=== PATIENT | male | born 1975 | race Caucasian/White ===

== ENCOUNTER 2018-05-21 18:02 | Emergency (ER) | payer MEDICARE, MEDICAID, SELFPAY ==
[2018-05-21 18:07] VITALS: BP 131/80; PULSE 86; RESP 18; TEMP 37.1; O2SAT 99
--- NOTE | 2018-05-21 18:59 | W.ED.GENAD ---
Discharge Plan Disposition Patient Disposition: HOME Condition: Fair Discharge Details Chief Complaint: Cellulitis Clinical Impression: Cellulitis in diabetic foot Primary Care Provider: None,None ED Provider: Pinky Nelson Home Meds and New Rx's Prescriptions: New clindamycin HCl 150 mg capsule 450 mg PO TID Qty: 63 RF: 0 Continue metformin 500 mg Tablet 1,000 mg PO BID RF: 0 methadone 10 mg/5 mL Solution 30 mg PO DAILY RF: 0 glyburide 5 mg Tablet PO DAILY RF: 0 lisinopril 10 mg Tablet PO DAILY RF: 0 triamcinolone acetonide 0.05 % Ointment 1 appful Topical PRN PRNRF: 0 lisdexamfetamine [Vyvanse] 50 mg Capsule 50 mg PO DAILY RF: 0 Discharge Instructions Instructions: Cellulitis (ED) Additional Instructions: Encourage hydration. Take antibiotics as prescribed, even if symptoms improve please take entire course. Please follow up with Dr. Escobar this week for reevaluation . If you are unable to follow up with him, please call primary care for follow up. Elevate foot. Keep wound clean, dry, covered. Seek care urgently once again if redness spreads, you have fevers/chills or other new/worsening symptoms. Medical Decision Making Patient is a 43-year-old poorly controlled diabetic, accompanied by his , chief complaint of erythema and warmth to the second toe right foot. He reports that he has had a callus to the affected digit for the past year. This is been evaluated by his primary care physician. Patient has been seen by agricultural chemist historically but is not had any follow-up appointments recently. States that he has chronic sensory deficits associated with diabetic neuropathy. No recent trauma that he is aware of. States that he noted the erythema starting yesterday and this has progressively spread. States he was feeling ill today. States that he vomited x1 this afternoon while at work. Reports that this is secondary to his p.o. intake. Reports he has had nothing for p.o. intake today aside from coughing. States that when he does this he does not frequently have GI upset. Patient seems very aware that this type of poor p.o. intake and dietary habits may be exacerbating his poor diabetic control. Reports that he recently had addition of another diabetic medication. On exam, patient has erythema to the second right digit. It is warm to the touch. No drainage is noted. No area of fluctuance to suggest a drainable abscess. Capillary refill is intact. Sensation is diminished, patient reports is chronic. 2+ distal pulses. Patient does appear to have chronic foot deformities, this is noted bilaterally. Calves are soft and nontender. Lungs clear, abdomen is soft and nontender. Patient and I discussed his chronic episodes of nausea ad vomiting. He reports this is chronic and intermittent. Smokes marijuana daily. Advised that he try to cut back. We discussed evaluation for this, at this time patient prefers treatment for cellulitis and to hold off on further evaluation for his abdomen. Currently asymptomatic. Advised on new/wrosening symptomsn ane when to seek care urgenttly once again. We discussed dietary changes. He seems very aware of what he should be doing but states that he is very inconsistent with this. Patient placed on Clindamycin. Advised f/u with podiatry this week for reevaluation. All of his questions and concerns were addressed, he is in agreement with this plan. [facility] General Mode of arrival: ambulatory. Date/Time Provider Initiated Documentation: 05/21/18 18:20. Limitations to Documentation: no limitations. Information obtained by: patient. History of Present Illness 43 year old M presents to the emergency department with the chief complaint of right foot cellulitis, described as moderate, with intensity rated at 6. Quality is described as aching, and is localized to the left and lower extremity. Patient reports no radiation. Patient started experiencing this day(s) (1) and it has been constant. No relieving factors improve symptom(s), No exacerbating factors reported . Patient notes loss of appetite, nausea/vomiting and rash; denies chest pain, cough, fever/chills, headaches, malaise, shortness of breath and weakness. Patient did receive the following treatments prior to arrival, none Related Data Home Medications Medication Instructions Recorded Confirmed clindamycin HCl 450 mg PO TID #63 cap 05/21/18 glyburide mg PO DAILY 05/21/18 lisdexamfetamine [Vyvanse] 50 mg PO DAILY 05/21/18 05/21/18 lisinopril mg PO DAILY 05/21/18 metformin 1,000 mg PO BID 05/21/18 05/21/18 methadone 30 mg PO DAILY 05/21/18 05/21/18 triamcinolone acetonide 1 appful TOPICAL PRN PRN 05/21/18 05/21/18 Previous Rx's Medication Instructions Recorded clindamycin HCl 450 mg PO TID #63 cap 05/21/18 Allergies Allergy/AdvReac Type Severity Reaction Status Date / Time amitriptyline AdvReac Psychosis Unverified 05/21/18 18:11 duloxetine [From Cymbalta] AdvReac Psychosis Unverified 05/21/18 18:11 gabapentin AdvReac Psychosis Unverified 05/21/18 18:11 ketorolac [From Toradol] AdvReac Psychosis Unverified 05/21/18 18:11 pregabalin [From Lyrica] AdvReac Psychosis Unverified 05/21/18 18:11 General Stated Complaint: Cellulitis APRIL: 3 Review of Systems Constitutional Reports as per HPI, Denies chills, Denies fatigue, Denies fever(s) and Denies headache(s) ENT Denies headache(s) Cardiovascular Reports as per HPI, Denies chest pain and Denies dyspnea Respiratory Denies cough and Denies dyspnea Gastrointestinal Reports as per HPI, Denies abdominal pain, Denies change in bowel habits and Reports vomiting (x1 today, associates with dietary intake) Genitourinary Denies system reviewed and no additional complaints, except as docu (patient denies any change in urinary habits) Musculoskeletal Reports as per HPI, Denies abnormal gait and Denies back pain Integumentary/Breasts Reports as per HPI and Reports other (erythema to 2nd right toe) Neurologic Denies abnormal gait and Denies headache(s) Endocrine Denies fatigue [facility] Social History Smoking/Tobacco Use Status: Never Social History Smoking/Tobacco Use Status: Never Exam Const General: cooperative, healthy appearing, comfortable, no acute distress and well developed Nutritional Appearance: average body habitus and well nourished Orientation: alert and awake HENMT Head: normal to inspection Mouth: moist mucous membranes Resp Effort & Inspection: normal respiratory effort, able to speak in complete sentences and no respiratory distress Auscultation: clear to auscultation bilaterally, no rales, no rhonchi and no wheezes Cardio Rate: regular rate Rhythm: regular rhythm Heart Sounds: S1 normal and S2 normal GI Inspection: normal to inspection, no abdominal wall ecchymosis, no edema and non-distended Palpation: soft, no hepatosplenomegaly, no guarding, not rigid and nontender Auscultation: normal bowel sounds Skin General skin exam: erythema (circumfrencial erythema around the 2nd digit right foot, this is warm to palpation. Brisk capillary refill. He has a white, swollen arear to the medial aspect of the toe. Appears chronic. Small open area at the base. Consistent with calus. No drainage. Sensory deficit.) Neuro General: alert and awake Cognition: normal cognition Speech: speech normal Gait: normal gait Sensory Exam: sensory deficits noted (sensation is limited in the feet) Extrem Right lower extremity: normal capillary refill; abnormal to inspection (skin changes as above. Limited ROM of the ankle, this is equal to the contralateral side, does not appear acute. Flat foot with medial deformity, this does not appear acute), no edema and joint enlargement noted Psych Appearance: grossly normal and well kempt Mental Status: mental status grossly normal Speech and Movement: speech and movement normal Course Vital Signs Temperature 37.1 C 05/21/18 18:07 Pulse 86 05/21/18 18:07 Respiratory Rate 18 05/21/18 18:07 Blood Pressure 131/80 05/21/18 18:07 Pulse Oximetry 99 05/21/18 18:07 Temperature 37.1 C 05/21/18 18:07 Temperature Source Temporal Artery Scan 05/21/18 18:07 Pulse 86 05/21/18 18:07 Respiratory Rate 18 05/21/18 18:07 Respiratory Effort Short of Breath 05/21/18 18:07 Blood Pressure 131/80 05/21/18 18:07 Blood Pressure Position Sitting 05/21/18 18:07 Pulse Oximetry 99 05/21/18 18:07 Oxygen Delivery Method Room Air 05/21/18 18:07 Oxygen Flow Rate 0 05/21/18 18:07 Pain Level 6 05/21/18 18:07
--- NOTE | 2018-05-21 19:14 | ED.GENADUL_ITS ---
Discharge Plan Disposition Patient Disposition: HOME Condition: Fair Discharge Details Chief Complaint: Cellulitis Clinical Impression: Cellulitis in diabetic foot Primary Care Provider: None,None ED Provider: Pinky Nelson Home Meds and New Rx's Prescriptions: New clindamycin HCl 150 mg capsule 450 mg PO TID Qty: 63 RF: 0 Continue metformin 500 mg Tablet 1,000 mg PO BID RF: 0 methadone 10 mg/5 mL Solution 30 mg PO DAILY RF: 0 glyburide 5 mg Tablet PO DAILY RF: 0 lisinopril 10 mg Tablet PO DAILY RF: 0 triamcinolone acetonide 0.05 % Ointment 1 appful Topical PRN PRNRF: 0 lisdexamfetamine [Vyvanse] 50 mg Capsule 50 mg PO DAILY RF: 0 Discharge Instructions Instructions: Cellulitis (ED) Additional Instructions: Encourage hydration. Take antibiotics as prescribed, even if symptoms improve please take entire course. Please follow up with Dr. Escobar this week for reevaluation . If you are unable to follow up with him, please call primary care for follow up. Elevate foot. Keep wound clean, dry, covered. Seek care urgently once again if redness spreads, you have fevers/ chills or other new/worsening symptoms. Medical Decision Making Patient is a 43-year-old poorly controlled diabetic, accompanied by his , chief complaint of erythema and warmth to the second toe right foot. He reports that he has had a callus to the affected digit for the past year. This is been evaluated by his primary care physician. Patient has been seen by emergency room technician historically but is not had any follow-up appointments recently. States that he has chronic sensory deficits associated with diabetic neuropathy. No recent trauma that he is aware of. States that he noted the erythema starting yesterday and this has progressively spread. States he was feeling ill today. States that he vomited x1 this afternoon while at work. Reports that this is secondary to his p.o. intake. Reports he has had nothing for p.o. intake today aside from coughing. States that when he does this he does not frequently have GI upset. Patient seems very aware that this type of poor p.o. intake and dietary habits may be exacerbating his poor diabetic control. Reports that he recently had addition of another diabetic medication. On exam, patient has erythema to the second right digit. It is warm to the touch. No drainage is noted. No area of fluctuance to suggest a drainable abscess. Capillary refill is intact. Sensation is diminished, patient reports is chronic. 2+ distal pulses. Patient does appear to have chronic foot deformities, this is noted bilaterally. Calves are soft and nontender. Lungs clear, abdomen is soft and nontender. Patient and I discussed his chronic episodes of nausea ad vomiting. He reports this is chronic and intermittent. Smokes marijuana daily. Advised that he try to cut back. We discussed evaluation for this, at this time patient prefers treatment for cellulitis and to hold off on further evaluation for his abdomen. Currently asymptomatic. Advised on new/wrosening symptomsn ane when to seek care urgenttly once again. We discussed dietary changes. He seems very aware of what he should be doing but states that he is very inconsistent with this. Patient placed on Clindamycin. Advised f/u with podiatry this week for reevaluation. All of his questions and concerns were addressed, he is in agreement with this plan. [facility] General Mode of arrival: ambulatory . Date/Time Provider Initiated Documentation: 05/21/18 18:20 . Limitations to Documentation: no limitations . Information obtained by: patient . History of Present Illness 43 year old M presents to the emergency department with the chief complaint of right foot cellulitis, described as moderate, with intensity rated at 6. Quality is described as aching, and is localized to the left and lower extremity. Patient reports no radiation. Patient started experiencing this day(s) (1) and it has been constant. No relieving factors improve symptom(s) , No exacerbating factors reported . Patient notes loss of appetite, nausea/ vomiting and rash; denies chest pain, cough, fever/chills, headaches, malaise, shortness of breath and weakness. Patient did receive the following treatments prior to arrival, none Related Data Home Medications Medication Instructions Recorded Confirmed clindamycin HCl 450 mg PO TID #63 cap 05/21/18 glyburide mg PO DAILY 05/21/18 lisdexamfetamine [Vyvanse] 50 mg PO DAILY 05/21/18 05/21/18 lisinopril mg PO DAILY 05/21/18 metformin 1,000 mg PO BID 05/21/18 05/21/18 methadone 30 mg PO DAILY 05/21/18 05/21/18 triamcinolone acetonide 1 appful TOPICAL PRN PRN 05/21/18 05/21/18 Previous Rx's Medication Instructions Recorded clindamycin HCl 450 mg PO TID #63 cap 05/21/18 Allergies Allergy/AdvReac Type Severity Reaction Status Date / Time amitriptyline AdvReac Psychosis Unverified 05/21/18 18:11 duloxetine [From Cymbalta] AdvReac Psychosis Unverified 05/21/18 18:11 gabapentin AdvReac Psychosis Unverified 05/21/18 18:11 ketorolac [From Toradol] AdvReac Psychosis Unverified 05/21/18 18:11 pregabalin [From Lyrica] AdvReac Psychosis Unverified 05/21/18 18:11 General Stated Complaint: Cellulitis APRIL: 3 Review of Systems Constitutional Reports as per HPI, Denies chills, Denies fatigue, Denies fever(s) and Denies headache(s) ENT Denies headache(s) Cardiovascular Reports as per HPI, Denies chest pain and Denies dyspnea Respiratory Denies cough and Denies dyspnea Gastrointestinal Reports as per HPI, Denies abdominal pain, Denies change in bowel habits and Reports vomiting (x1 today, associates with dietary intake) Genitourinary Denies system reviewed and no additional complaints, except as docu (patient denies any change in urinary habits) Musculoskeletal Reports as per HPI, Denies abnormal gait and Denies back pain Integumentary/Breasts Reports as per HPI and Reports other (erythema to 2nd right toe) Neurologic Denies abnormal gait and Denies headache(s) Endocrine Denies fatigue [facility] Social History Smoking/Tobacco Use Status: Never Social History Smoking/Tobacco Use Status: Never Exam Const General: cooperative, healthy appearing, comfortable, no acute distress and well developed Nutritional Appearance: average body habitus and well nourished Orientation: alert and awake HENMT Head: normal to inspection Mouth: moist mucous membranes Resp Effort & Inspection: normal respiratory effort, able to speak in complete sentences and no respiratory distress Auscultation: clear to auscultation bilaterally, no rales, no rhonchi and no wheezes Cardio Rate: regular rate Rhythm: regular rhythm Heart Sounds: S1 normal and S2 normal GI Inspection: normal to inspection, no abdominal wall ecchymosis, no edema and non -distended Palpation: soft, no hepatosplenomegaly, no guarding, not rigid and nontender Auscultation: normal bowel sounds Skin General skin exam: erythema (circumfrencial erythema around the 2nd digit right foot, this is warm to palpation. Brisk capillary refill. He has a white, swollen arear to the medial aspect of the toe. Appears chronic. Small open area at the base. Consistent with calus. No drainage. Sensory deficit.) Neuro General: alert and awake Cognition: normal cognition Speech: speech normal Gait: normal gait Sensory Exam: sensory deficits noted (sensation is limited in the feet) Extrem Right lower extremity: normal capillary refill; abnormal to inspection (skin changes as above. Limited ROM of the ankle, this is equal to the contralateral side, does not appear acute. Flat foot with medial deformity, this does not appear acute), no edema and joint enlargement noted Psych Appearance: grossly normal and well kempt Mental Status: mental status grossly normal Speech and Movement: speech and movement normal Course Vital Signs Temperature 37.1 C 05/21/18 18:07 Pulse 86 05/21/18 18:07 Respiratory Rate 18 05/21/18 18:07 Blood Pressure 131/80 05/21/18 18:07 Pulse Oximetry 99 05/21/18 18:07 Temperature 37.1 C 05/21/18 18:07 Temperature Source Temporal Artery Scan 05/21/18 18:07 Pulse 86 05/21/18 18:07 Respiratory Rate 18 05/21/18 18:07 Respiratory Effort Short of Breath 05/21/18 18:07 Blood Pressure 131/80 05/21/18 18:07 Blood Pressure Position Sitting 05/21/18 18:07 Pulse Oximetry 99 05/21/18 18:07 Oxygen Delivery Method Room Air 05/21/18 18:07 Oxygen Flow Rate 0 05/21/18 18:07 Pain Level 6 05/21/18 18:07
== END 2018-05-21 19:16 | disposition home or self-care (01) ==
LOC: ER 19:33
PROVIDERS: Emergency Provider Physician Assistant
DX: E11.628 Type 2 diabetes mellitus with other skin complications (principal); L03.115 Cellulitis of right lower limb; R11.2 Nausea with vomiting, unspecified; E11.40 Type 2 diabetes mellitus with diabetic neuropathy, unspecified
CPT/HCPCS: 99283

== ENCOUNTER 2019-01-16 21:33 | Emergency (ER) | payer MEDICARE, MEDICAID, SELFPAY ==
[2019-01-16 21:37] VITALS: BP 155/86; PULSE 124; RESP 18; TEMP 37.2; O2SAT 97
[2019-01-16 21:49] VITALS: RESP 16
--- NOTE | 2019-01-16 21:56 | W.ED.GENAD ---
Discharge Plan Disposition Patient Disposition: HOME Condition: Good Discharge Details Chief Complaint: GenMedical Clinical Impression: Constipation Primary Care Provider: None,None ED Provider: Ken Isabel Meds and New Rx's Prescriptions: Continued metformin 500 mg Tablet 1,000 mg PO BID RF: 0 methadone 10 mg/5 mL Solution 30 mg PO DAILY RF: 0 glyburide 5 mg Tablet 5 mg PO DAILY RF: 0 lisinopril 10 mg Tablet 10 mg PO DAILY RF: 0 triamcinolone acetonide 0.05 % Ointment 1 appful Topical PRN PRNRF: 0 Vyvanse 50 mg Capsule 50 mg PO DAILY RF: 0 Discharge Instructions Instructions: Constipation (ED) Additional Instructions: Laboratory studies look fine. Urinalysis is normal. CT scan suggests significant constipation/obstipation. Likely related to methadone use. Please increase your fluid and fiber intake. Try using magnesium citrate as we discussed. Follow-up with primary care next week if not better. Return to ED if you develop fever, persistent vomiting, worsening abdominal pain, other concerns or problems. Referrals: Primary Care Provider [Outside] Medical Decision Making Patient has myriad of chronic problems. However, complaining of new/worsening abdominal pain and left back pain with associated vomiting. Suspect his heart rate and blood pressure are more due to anxiety and anything else. His exam is otherwise unremarkable including a benign abdomen. He is reporting 1 week worth of worsening pain. Because of the tachycardia, I will give fluids check laboratory studies and obtain CT scan. However, again I think his abnormal vital signs are mostly related to anxiety. Will hold off giving anything for pain as he actually seems quite comfortable. Patient's heart rate and blood pressure have come down to normal. Laboratory studies are unremarkable. Sugar is a little high at 219 but the rest of the labs look fine. Urinalysis is negative for infection or blood. CT scan with nothing acute other than evidence of obstipation/constipation which may be related to patient's methadone use. Recommend increase fluids and fiber. He has tried [id number] medications but has not tried mag citrate in the past. We will have him use mag citrate quarter bottle a day until results. Follow-up with primary care next week if not better. Return to ED for fever, persistent vomiting, worsening abdominal pain, other concerns or problems. Lab Data Lab results reviewed: Yes I reviewed the patient's lab results. HPI General Mode of arrival: ambulatory. Date/Time Provider Initiated Documentation: 01/16/19 21:40. Limitations to Documentation: no limitations. Information obtained by: patient and RN notes reviewed. HPI Narrative: Patient presents with chief complaint of worsening abdominal pain for the last 6 days with associated worsening left back pain for the last 4 days. Reports prior to that he had flulike symptoms consisting of fevers, malaise, body aches, lethargy for about 10 days. Those symptoms have subsequently resolved. He developed the abdominal pain towards the end of this episode. He reports that it is getting worse and is generalized. He has nausea and has had an episode of vomiting in the morning for the last 3 days. He reports decreased oral intake and weight loss. He is having some palpitations. He denies fevers or chills. He denies chest pain or shortness of breath. He has no hematuria or dysuria. He has chronic back and leg pain as well as neuropathy but feels the abdominal pain and left back pain is new and different. Related Data Home Medications Medication Instructions Recorded Confirmed Vyvanse 50 mg PO DAILY 05/21/18 01/16/19 glyburide 5 mg PO DAILY 05/21/18 01/16/19 lisinopril 10 mg PO DAILY 05/21/18 01/16/19 metformin 1,000 mg PO BID 05/21/18 01/16/19 methadone 30 mg PO DAILY 05/21/18 01/16/19 triamcinolone acetonide 1 appful TOPICAL PRN PRN 05/21/18 01/16/19 Allergies Allergy/AdvReac Type Severity Reaction Status Date / Time amitriptyline AdvReac Psychosis Unverified 01/16/19 21:44 duloxetine [From Cymbalta] AdvReac Psychosis Unverified 01/16/19 21:44 gabapentin AdvReac Psychosis Unverified 01/16/19 21:44 ketorolac [From Toradol] AdvReac Psychosis Unverified 01/16/19 21:44 pregabalin [From Lyrica] AdvReac Psychosis Unverified 01/16/19 21:44 General Stated Complaint: GenMedical APRIL: 3 Review of Systems Review of Systems 03/25 Review of Systems completed and is negative except as stated above in HPI (Systems reviewed: Const, Eyes, ENT, Resp, CV, GI, , MSK, Skin, Neuro) [facility] Medical History ADHD (Acute) Anxiety (Chronic) Depression (Chronic) Diabetes mellitus (Chronic) HTN (hypertension) (Chronic) Social History (Updated 01/16/19 @ 22:11 by Ken Isabel MD) Smoking/Tobacco Use Status: Former Tobacco Use Alcohol Intake: never Drug use: Daily Substance use type: marijuana Do you feel safe in your relationship?: Yes Exam Narrative Exam Narrative: Vitals: Afebrile. Tachycardic and hypertensive but seems quite anxious and wound up. Normal respirations and O2 saturations. Const: WDWN male in NAD. HEENT: NC/AT. Normal facial exam. Eyes: Normal conjunctiva and sclera. Neck: Supple. Trachea midline. Lungs: Normal respiratory effort. Lungs are clear. Cor: RRR without murmur/gallop. Tachycardic. Good radial pulses. GI: Soft. NT/ND. No guarding or rebound. No HSM. Back: No CVAT. Neuro: A+O x 3. CN grossly in tact. Good strength and no focal deficit. Ext: No C/C/E. Skin: Warm and dry without rash. Psych: Anxious and pressured at times. Course Vital Signs Temperature 98.9 F 01/16/19 21:37 Pulse 124 H 01/16/19 21:37 Respiratory Rate 18 01/16/19 21:37 Blood Pressure 155/86 H 01/16/19 21:37 Pulse Oximetry 97 01/16/19 21:37 Temperature 98.9 F 01/16/19 21:37 Temperature Source Temporal Artery Scan 01/16/19 21:37 Pulse 124 H 01/16/19 21:37 Respiratory Rate 16 01/16/19 21:49 Respiratory Effort 01/16/19 21:49 Respiratory Depth Normal 01/16/19 21:49 Respiratory Pattern Normal 01/16/19 21:49 Blood Pressure 155/86 H 01/16/19 21:37 Blood Pressure Position Sitting 01/16/19 21:37 Pulse Oximetry 97 01/16/19 21:37 Oxygen Delivery Method Room Air 01/16/19 21:37 Oxygen Flow Rate 0 01/16/19 21:37
[2019-01-16] MEDS: Normal Saline 1,000 ML 1000 ML IV (22:27)
[2019-01-16 22:28] LABS: Abs Immature Grans 0.03 k/cumm (0.0-0.09); Absolute Basophil Count 0.04 k/cumm (0.0-0.2); Absolute Eosinophil Count 0.37 k/cumm (0.0-0.7); Absolute Monocyte Count 0.56 k/cumm (0.11-0.7); Absolute Neutrophil Count 4.34 k/cumm (1.2-6.7); Basophils % 0.5; Eosinophils % 4.3; HCT 43.3 % (40.0-50.0); HGB 14.8 g/dL (13.5-17.5); Immature Grans % 0.4; Lymphocytes % 37.5; Mean Corp. HGB Concentration 34.2 g/dL (32.0-36.0); Mean Corpuscular Volume 84.9 fL (80-95); Mean Platelet Volume 9.7 fL (8.0-11.0); Monocytes % 6.6; Neutrophils % 50.7; Platelet Count 226 x1000/uL (130-400); RBC Distribution Width 13.2 % (11.8-14.1); White Blood Cell Count 8.54 k/cumm (4.4-10.8)
[2019-01-16 23:00] LABS: ALT 34 U/L (12-78); AST 20 U/L (15-37); Albumin 4.1 g/dL (3.4-5.0); Alkaline Phosphatase 68 U/L (46-116); BUN 18 mg/dL (7-18); Bilirubin, Total 0.2 mg/dL (0.2-1.0); CREATININE 0.93 mg/dL (0.70-1.30); Chloride 102 mmol/L (98-107); Glucose 219 mg/dL (70-100); Lipase 107 U/L (73-393); Magnesium 1.9 mg/dL (1.8-2.4); Potassium 3.9 mmol/L (3.5-5.1); Sodium 139 mmol/L (136-145); Total Protein 7.6 g/dL (6.4-8.2)
[2019-01-16] MEDS: Omnipaque 350 MG/ML 100 ML BTL IJ (23:26)
[2019-01-16] MEDS: Omnipaque 350 MG/ML 50 ML BTL IJ (23:27)
--- NOTE | 2019-01-16 23:29 | DI.CT_ITS ---
SYMPTOM/DIAGNOSIS: WORSENING LEFT SIDED ABDOMINAL PAIN ABDOMINAL AND PELVIC CT 01/16/19 CT examination of the abdomen and pelvis was performed with a bolus infusion of 100 cc Omnipaque 350. Images obtained through the lung bases are unremarkable. Liver, spleen, pancreas, gallbladder and bile ducts are unremarkable. Abdominal aorta is of normal diameter and no major vascular abnormality is seen. Adrenals appear normal bilaterally. Small low attenuation well circumscribed left renal lesions are consistent with cysts. No other urinary tract abnormality is seen. Small bilateral fat containing inguinal hernias noted along with tiny fat containing umbilical hernia. No significant abdominal or pelvic adenopathy. Moderate quantity of stool in the colon. Normal appearance of the appendix. Question mild wall thickening of portions of the colon may be due to underdistention but colitis is not entirely excluded. CONCLUSION: No convincing evidence of acute intra-abdominal process. Question colonic wall thickening, colitis not excluded. Please correlate clinically.
[2019-01-16 23:40] VITALS: BP 129/80; PULSE 82; RESP 16; TEMP 37; O2SAT 96
[2019-01-16 23:45] LABS: Bilirubin Negative (Negative); Blood Negative (Negative); Clarity Clear (Clear); Glucose Negative (Negative); Ketones Negative (Negative); Leukocyte Esterase Negative (Negative); Nitrite Negative (Negative); Specific Gravity 1.015 (1.005-1.025)
--- NOTE | 2019-01-16 23:50 | DI.VRAD_ITS ---
EXAM: CT Abdomen and Pelvis With Contrast EXAM DATE/TIME: 01/16/2019 10:13 PM CLINICAL HISTORY: 43 years old, male; Abdominal pain; Localized; Left TECHNIQUE: Imaging protocol: Axial computed tomography images of the abdomen and pelvis with intravenous contrast. Coronal and sagittal reformatted images were created and reviewed. Radiation optimization: All CT scans at this facility use at least one of these dose optimization techniques: automated exposure control; mA and/or kV adjustment per patient size (includes targeted exams where dose is matched to clinical indication); or iterative reconstruction. Contrast material: [id number];Contrast volume: 125 ml;Contrast route: IV RAC 18G; COMPARISON: No relevant prior studies available. FINDINGS: Liver: Normal. No mass. Gallbladder and bile ducts: Normal. No calcified stones. No ductal dilation. Pancreas: Normal. No ductal dilation. Spleen: Normal. No splenomegaly. Adrenals: Normal. No mass. Kidneys and ureters: Subcentimeter hypodensities in the left kidney. Stomach and bowel: Stool distended colon. Food and fluid distended stomach. Appendix: Surgical clips near the cecum likely from prior appendectomy. Intraperitoneal space: Normal. No free air. No significant fluid collection. Vasculature: Normal. No abdominal aortic aneurysm. Lymph nodes: Normal. No enlarged lymph nodes. Bladder: Unremarkable as visualized. Reproductive: Unremarkable as visualized. Bones/joints: No acute fracture. No dislocation. Soft tissues: Fat distention of the inguinal canals. IMPRESSION: Obstipation. Dictated and Authenticated by: Amanda Jasso MD. Ordering:HARPER Rogers MD
[2019-01-17 00:12] VITALS: BP 129/80; PULSE 82; RESP 16; O2SAT 96
== END 2019-01-17 00:11 | disposition home or self-care (01) ==
PROVIDERS: Emergency Provider Emergency Medicine
DX: K59.00 Constipation, unspecified (principal); I10 Essential (primary) hypertension; E11.9 Type 2 diabetes mellitus without complications; Z79.84 Long term (current) use of oral hypoglycemic drugs
CPT/HCPCS: 36415; 80053; 83690; 96360; 96361; 99285; 74177; 81003; 83735; 85025; 99284; J3490; Q9967

== ENCOUNTER 2019-01-21 14:30 | Outpatient (CLI) | payer MEDICARE, MEDICAID, SELFPAY ==
[2019-01-21 15:12] LABS: Hemoglobin A1C 7.9 % (4.5-6.2)
== END 2019-01-21 14:50 ==
PROVIDERS: Visit Provider Nurse Practitioner Acute Care
DX: Z77.011 Contact with and (suspected) exposure to lead (principal); K59.00 Constipation, unspecified; E11.9 Type 2 diabetes mellitus without complications
CPT/HCPCS: 36415; 83036; 83655; 84443

== ENCOUNTER 2019-12-19 06:32 | Emergency (ER) | payer MEDICARE, SELFPAY ==
[2019-12-19 06:36] VITALS: BP 141/88; PULSE 70; RESP 16; TEMP 36.4; O2SAT 100
--- NOTE | 2019-12-19 06:39 | ED.GENADUL_ITS ---
Discharge Plan Disposition Patient Disposition: HOME Condition: Improving Discharge Details Chief Complaint: Abd Prob Clinical Impression: Cholelithiasis, Biliary colic Primary Care Provider: None,None ED Provider: Judi Tinoco Discharge Instructions Instructions: Biliary Colic (ED) Additional Instructions: Drink plenty of fluids and get plenty of rest. Alternate tylenol and motrin as needed and directed for pain. Follow-up in the general surgery office tomorrow at 1130am with Dr. Elder. Return to the emergency department if you develop any worsening or new concerning symptoms. Referrals: Neisha Elder DO [OSTEOPATHIC DOCTOR] - Discharge Data Discharge Date/Time-TO BE ENTERED AT DEPARTURE: 12/19/19 11:44 Discharge Physician: Judi Tinoco Medical Decision Making <Antonio Harrison MD - Last Filed: 12/19/19 07:42> 44 yo male with hx of diet controlled db who comes in with acute onset of right sided abdominal pain radiating to the back starting around 4am that woke him up from sleep and has never had this pain in the past. Had an episode of vomit as well. No fevers, chills, chest pain, sob. HE has tenderness in the right lower and upper abdomen without guarding on exam. Differential includes cholecysitis, appendicitis, pancreatitis among other pathology, will obtain labs and imaging and monitor. labs unremarkabsle, awaiting ct results, pt will be signed out pending ct results and reevaluation Differential Diagnosis Differential Diagnosis: appendicitis, pancreatitis, cholecystitis Lab Data Lab results reviewed: Yes I reviewed the patient's lab results. <Judi Tinoco DO - Last Filed: 12/19/19 18:10> 0800 --please see Dr. Harrison's note for initial presentation, exam and plan. Case endorsed to follow-up on labs and imaging results. Patient reassessed and states his pain is much improved currently 2/10. Labs reviewed and unremarkable. Normal white blood cell count. CT reviewed and negative for any acute process although notes gallbladder dilatation and enlarged spleen. Patient has tenderness to palpation in right upper quadrant. No CVA tenderness. Will obtain an upper abdominal ultrasound to rule out cholelithiasis or cholecystitis. Due to location of pain and patient's report of vomiting, will also obtain a chest x-ray to rule out any acute disease. 1030 --ultrasound reviewed and notes a 2 cm stone impacted in the gallbladder neck with sludge. No gallbladder wall thickening or pericholecystic fluid. Normal common bile duct. Chest x-ray negative. Case discussed with Dr. Elder who will follow up with patient in her office tomorrow at 11:30 AM as patient likely requires surgery in the near future but not emergently. She is requesting a COVID swab here before discharge. Patient reassessed -he states he feels much better and feels good to go home. Advised to avoid possible diet triggers. Usual and customary return precautions given prior to discharge. Medical Records Medical records reviewed: Yes I reviewed the patient's medical records. Imaging Data Radiologic Study: Radiologist's impression: CT ABDOMEN PELVIS W CLINICAL HISTORY: right sided abdominal pain TECHNIQUE: IMAGES WERE PERFORMED FROM THE LUNG BASES THROUGH THE ISCHIAL TUBEROSITIES AFTER 100 CC OF OMNIPAQUE 350 IV. NO ORAL CONTRAST WAS ADMINISTERED. COMPARISON: CT CT ABDOMEN PELVIS W from 01/16/2019 FINDINGS: THE LUNG BASES ARE CLEAR. THE HEART SIZE IS NORMAL. THE LIVER, GALLBLADDER, SPLEEN, PANCREAS AND ADRENALS ARE UNREMARKABLE. THERE IS A SMALL LEFT RENAL CYST. APPENDIX APPEARS NORMAL. THERE IS A NORMAL QUANTITY OF STOOL. NO BOWEL DILATATION OR INFLAMMATORY CHANGES ARE SEEN. THE BLADDER AND PROSTATE ARE UNREMARKABLE. THERE ARE SMALL FATTY CONTAINING INGUINAL HERNIAS. THE AORTA IS NORMAL IN DIAMETER. DEGENERATIVE CHANGES ARE SEEN IN THE SPINE. IMPRESSION: NO ACUTE ABNORMALITY US ABDOMEN LIMITED CLINICAL HISTORY: r/o cholelithiasis and cholecystitis TECHNIQUE: Ultrasound performed using standard protocol. COMPARISON: CT CT ABDOMEN PELVIS W from 12/19/2019 FINDINGS: The gallbladder is somewhat distended. Patient was tender while scanning over the gallbladder. No gallbladder wall thickening or pericholecystic fluid is seen. There is a sludge ball near the fundus of the gallbladder. There is a stone in the neck of the gallbladder in 2 cm in. There is no biliary dilatation. Visualized portions of the liver are unremarkable. IMPRESSION: 2 centimeter stone which appears impacted in the gallbladder neck. Sludge is also noted. There is a positive sonographic Langford's sign. XR CHEST 2V PA LATERAL CLINICAL HISTORY: r/o acute disease TECHNIQUE: 2D digital imaging was performed. COMPARISON: No exams were available for comparison FINDINGS: MEDIASTINUM: Normal. HEART: Normal. PULMONARY VASCULATURE: Normal. LUNGS: Clear. PLEURAL SPACE: No pleural effusion or pneumothorax. BONE:Normal. OTHER FINDINGS:Normal. IMPRESSION: No acute pulmonary findings. Lab Data Lab results reviewed: Yes I reviewed the patient's lab results. Labs: Laboratory Tests Range/Units 12/19/19 12/19/19 12/19/19 06:45 06:45 06:45 WBC (4.4-10.8) k/cumm 8.03 RBC (4.50-6.00) m/cumm 5.04 Hgb (13.5-17.5) g/dL 15.2 Hct (40.0-50.0) % 43.5 MCV (80-95) fL 86.3 MCH (27.0-33.0) pg 30.2 MCHC (32.0-36.0) g/dL 34.9 RDW (11.8-14.1) % 13.0 Plt Count (130-400) x1000/uL 247 MPV (8.0-11.0) fL 9.7 Immature Gran % % 0.9 Neutrophils % 57.9 Lymphocytes % 31.4 Monocytes % 7.3 Eosinophils % 2.1 Basophils % 0.4 Absolute Neutrophils (1.2-6.7) k/cumm 4.65 Absolute Lymphocytes (1.2-3.4) k/cumm 2.52 Absolute Monocytes (0.11-0.7) k/cumm 0.59 Absolute Eosinophils (0.0-0.7) k/cumm 0.17 Absolute Basophils (0.0-0.2) k/cumm 0.03 PT (9.3-11.0) sec 9.9 INR (0.9-1.1) 1.0 APTT (21.0-31.4) sec 25.0 Sodium (136-145) mmol/L 140 Potassium (3.5-5.1) mmol/L 3.7 Chloride (98-107) mmol/L 102 Carbon Dioxide (21.0-32.0) mmol/L 30.6 Anion Gap (3-11) mmol/L 7.4 BUN (7-18) mg/dL 17 Creatinine (0.70-1.30) mg/dL 0.91 Estimated GFR/1.73 m2 (mL/min/1.73m2) >= 60.00 Glucose (74-106) mg/dL 176 H Calcium (8.5-10.1) mg/dL 9.0 Total Bilirubin (0.2-1.0) mg/dL 0.4 Conjugated Bilirubin (0.00-0.20) mg/dL 0.12 AST (15-37) U/L 15 ALT (16-63) U/L 18 Alkaline Phosphatase (46-116) U/L 83 Total Protein (6.4-8.2) g/dL 7.8 Albumin (3.4-5.0) g/dL 4.2 Lipase (73-393) U/L 126 Urine Color (Yellow) Urine Clarity (Clear) Urine pH (5-8) Ur Specific [place] (1.005-1.025) Urine Protein (Negative) mg/dL Urine Ketones (Negative) mg/dL Urine Blood (Negative) Urine Nitrite (Negative) Urine Bilirubin (Negative) Urine Urobilinogen (Up TO 0.2) EU/dL Ur Leukocyte Esterase (Negative) Urine Glucose (Negative) mg/dL Range/Units 12/19/19 09:09 WBC (4.4-10.8) k/cumm RBC (4.50-6.00) m/cumm Hgb (13.5-17.5) g/dL Hct (40.0-50.0) % MCV (80-95) fL MCH (27.0-33.0) pg MCHC (32.0-36.0) g/dL RDW (11.8-14.1) % Plt Count (130-400) x1000/uL MPV (8.0-11.0) fL Immature Gran % % Neutrophils % Lymphocytes % Monocytes % Eosinophils % Basophils % Absolute Neutrophils (1.2-6.7) k/cumm Absolute Lymphocytes (1.2-3.4) k/cumm Absolute Monocytes (0.11-0.7) k/cumm Absolute Eosinophils (0.0-0.7) k/cumm Absolute Basophils (0.0-0.2) k/cumm PT (9.3-11.0) sec INR (0.9-1.1) APTT (21.0-31.4) sec Sodium (136-145) mmol/L Potassium (3.5-5.1) mmol/L Chloride (98-107) mmol/L Carbon Dioxide (21.0-32.0) mmol/L Anion Gap (3-11) mmol/L BUN (7-18) mg/dL Creatinine (0.70-1.30) mg/dL Estimated GFR/1.73 m2 (mL/min/1.73m2) Glucose (74-106) mg/dL Calcium (8.5-10.1) mg/dL Total Bilirubin (0.2-1.0) mg/dL Conjugated Bilirubin (0.00-0.20) mg/dL AST (15-37) U/L ALT (16-63) U/L Alkaline Phosphatase (46-116) U/L Total Protein (6.4-8.2) g/dL Albumin (3.4-5.0) g/dL Lipase (73-393) U/L Urine Color (Yellow) Yellow Urine Clarity (Clear) Sl cloudy Urine pH (5-8) 7.0 Ur Specific [place] (1.005-1.025) 1.015 Urine Protein (Negative) mg/dL Negative Urine Ketones (Negative) mg/dL Negative Urine Blood (Negative) Negative Urine Nitrite (Negative) Negative Urine Bilirubin (Negative) Negative Urine Urobilinogen (Up TO 0.2) EU/dL 0.2 Ur Leukocyte Esterase (Negative) Negative Urine Glucose (Negative) mg/dL Negative HPI <Antonio Harrison MD - Last Filed: 12/19/19 07:42> General Mode of arrival: ambulatory . Date/Time Provider Initiated Documentation: 12/19/19 06:33 . Limitations to Documentation: no limitations . Information obtained by: patient . History of Present Illness 44 year old M presents to the emergency department with the chief complaint of abdominal pain, described as moderate and severe, Patient started experiencing this hour(s) (3) and it has been constant. No relieving factors improve symptom(s), No exacerbating factors reported . Patient notes nausea/vomiting. Patient did receive the following treatments prior to arrival, none Related Data Allergies Allergy/AdvReac Type Severity Reaction Status Date / Time amitriptyline AdvReac Psychosis Unverified 12/19/19 06:39 duloxetine [From Cymbalta] AdvReac Psychosis Unverified 12/19/19 06:39 gabapentin AdvReac Psychosis Unverified 12/19/19 06:39 ketorolac [From Toradol] AdvReac Psychosis Unverified 12/19/19 06:39 pregabalin [From Lyrica] AdvReac Psychosis Unverified 12/19/19 06:39 General Stated Complaint: Abd Prob APRIL: 3 Review of Systems <Antonio Harrison MD - Last Filed: 12/19/19 07:42> All systems reviewed & are unremarkable except as noted in HPI and below Constitutional Constitutional: Denies chills, Denies fever(s) and Denies weakness Cardiovascular Cardiovascular: Denies chest pain and Denies dyspnea Respiratory Respiratory: Denies cough and Denies dyspnea Musculoskeletal Musculoskeletal: Denies joint swelling Neurologic Neurologic: Denies weakness Psychiatric Psychiatric: Denies depression PFSH <Antonio Harrison MD - Last Filed: 12/19/19 07:42> Social History (Updated 01/16/19 @ 22:11 by Ken Isabel MD) Smoking/Tobacco Use Status: Former Tobacco Use Alcohol Intake: never Drug use: Daily Substance use type: marijuana Do you feel safe at home: Yes Do you feel safe in your relationship?: Yes Exam <Antonio Harrison MD - Last Filed: 12/19/19 07:42> Const General: no acute distress Orientation: alert HENMT Head: normal to inspection Ears: external ears normal General nose exam: external nose normal Mouth: moist mucous membranes Eyes General: appearance normal, both eyes and all related structures Neck Neck: normal visual inspection Resp Effort & Inspection: normal respiratory effort and able to speak in complete sentences Cardio Rate: regular rate GI Palpation: soft Skin General skin exam: no rashes or lesions noted Neuro General: patient alert and patient oriented x3 Extrem General: normal to inspection Psych Mental Status: mental status grossly normal Course <Antonio Harrison MD - Last Filed: 12/19/19 07:42> Vital Signs Vital signs: Vital Signs Temperature 36.4 C L 12/19/19 06:36 Pulse 70 12/19/19 06:36 Respiratory Rate 16 12/19/19 06:36 Blood Pressure 141/88 H 12/19/19 06:36 Pulse Oximetry 100 12/19/19 06:36 Temperature 36.4 C L 12/19/19 06:36 Temperature Source Temporal Artery Scan 12/19/19 06:36 Pulse 70 12/19/19 06:36 Respiratory Rate 16 12/19/19 06:36 Blood Pressure 141/88 H 12/19/19 06:36 Blood Pressure Position Sitting 12/19/19 06:36 Pulse Oximetry 100 12/19/19 06:36 Oxygen Delivery Method Room Air 12/19/19 06:36 Oxygen Flow Rate 0 12/19/19 06:36 Pain Level 8 12/19/19 06:36 Sign Out <Antonio Harrison MD - Last Filed: 12/19/19 07:42> Sign Out Data: Sign Out Comment: abdominal pain pending cat scan results Last updated by Antonio Harrison MD at 12/19/19 07:44
[2019-12-19] MEDS: Normal Saline 1,000 ML 1000 ML IV (06:46)
[2019-12-19] MEDS: Ondansetron 4 MG/2 ML VIAL IVP (06:48)
[2019-12-19 06:59] LABS: Abs Immature Grans 0.07 k/cumm (0.0-0.09); Absolute Basophil Count 0.03 k/cumm (0.0-0.2); Absolute Eosinophil Count 0.17 k/cumm (0.0-0.7); Absolute Lymphocyte Count 2.52 k/cumm (1.2-3.4); Absolute Monocyte Count 0.59 k/cumm (0.11-0.7); Absolute Neutrophil Count 4.65 k/cumm (1.2-6.7); Basophils % 0.4; Eosinophils % 2.1; HCT 43.5 % (40.0-50.0); HGB 15.2 g/dL (13.5-17.5); Immature Grans % 0.9 %; Lymphocytes % 31.4; Mean Corp. HGB Concentration 34.9 g/dL (32.0-36.0); Mean Corpuscular Hemoglobin 30.2 pg (27.0-33.0); Mean Corpuscular Volume 86.3 fL (80-95); Mean Platelet Volume 9.7 fL (8.0-11.0); Monocytes % 7.3; Neutrophils % 57.9; Platelet Count 247 x1000/uL (130-400); RBC 5.04 m/cumm (4.50-6.00); White Blood Cell Count 8.03 k/cumm (4.4-10.8)
[2019-12-19 07:10] LABS: Prothrombin Time 9.9 sec (9.3-11.0)
[2019-12-19 07:20] LABS: ALT 18 U/L (16-63); AST 15 U/L (15-37); Albumin 4.2 g/dL (3.4-5.0); Alkaline Phosphatase 83 U/L (46-116); Anion Gap 7.4 mmol/L (3-11); BUN 17 mg/dL (7-18); Bilirubin, Direct 0.12 mg/dL (0.00-0.20); Bilirubin, Total 0.4 mg/dL (0.2-1.0); CO2 30.6 mmol/L (21.0-32.0); CREATININE 0.91 mg/dL (0.70-1.30); Chloride 102 mmol/L (98-107); Glucose 176 mg/dL (74-106); Lipase 126 U/L (73-393); Potassium 3.7 mmol/L (3.5-5.1); Sodium 140 mmol/L (136-145); Total Protein 7.8 g/dL (6.4-8.2)
--- NOTE | 2019-12-19 07:41 | DI.CT_ITS ---
EXAM: CT ABDOMEN PELVIS W CLINICAL HISTORY: right sided abdominal pain TECHNIQUE: IMAGES WERE PERFORMED FROM THE LUNG BASES THROUGH THE ISCHIAL TUBEROSITIES AFTER 100 CC O F OMNIPAQUE 350 IV. NO ORAL CONTRAST WAS ADMINISTERED. COMPARISON: CT CT ABDOMEN PELVIS W from 01/16/2019 FINDINGS: THE LUNG BASES ARE CLEAR. THE HEART SIZE IS NORMAL. THE LIVER, GALLBLADDER, SPLEEN, PANCREAS AND A DRENALS ARE UNREMARKABLE. THERE IS A SMALL LEFT RENAL CYST. APPENDIX APPEARS NORMAL. THERE IS A NO RMAL QUANTITY OF STOOL. NO BOWEL DILATATION OR INFLAMMATORY CHANGES ARE SEEN. THE BLADDER AND PROST ATE ARE UNREMARKABLE. THERE ARE SMALL FATTY CONTAINING INGUINAL HERNIAS. THE AORTA IS NORMAL IN TETE METER. DEGENERATIVE CHANGES ARE SEEN IN THE SPINE. IMPRESSION: NO ACUTE ABNORMALITY. RADIATION DOSE DELIVERED: Total DLP Total DLP
[2019-12-19] MEDS: Omnipaque 350 MG/ML 100 ML BTL IJ (07:53)
[2019-12-19] MEDS: Normal Saline 20 ML VIAL IV ×2 (07:54→07:56)
--- NOTE | 2019-12-19 08:21 | DI.VRAD_ITS ---
PROCEDURE INFORMATION: Exam: CT Abdomen And Pelvis With Contrast Exam date and time: 12/19/2019 7:33 AM Age: 44 years old Clinical indication: Flank; Patient HX: Right sided abdominal pain TECHNIQUE: Imaging protocol: Computed tomography of the abdomen and pelvis with intravenous contrast. Radiation optimization: All CT scans at this facility use at least one of these dose optimization techniques: automated exposure control; mA and/or kV adjustment per patient size (includes targeted exams where dose is matched to clinical indication); or iterative reconstruction. Contrast material: OMNI-PAQUE 350; Contrast volume: 100 ml; Contrast route: INTRAVENOUS (IV); COMPARISON: CT ABDOMEN PELVIS W 01/16/2019 11:22 PM FINDINGS: Pleural space: Interstitial prominence, mild dependent airspace disease, and mild pleural thickening. Liver: Hepatomegaly and fatty infiltration of the liver. Gallbladder and bile ducts: Gallbladder dilatation with normal caliber of the biliary ducts. Pancreas: No pancreatic mass or ductal dilatation. Spleen: Enlarged spleen measuring 16.5 cm in length. Adrenals: Unremarkable adrenals. Kidneys and ureters: Subcentimeter renal cyst. No hydronephrosis or urolithiasis. Stomach and bowel: Questionable wall thickening in the decompressed stomach. Diverticula, without pericolonic inflammation. Prominent stool. Mild dilatation of the distal ileum. Appendix: No acute appendicitis. Intraperitoneal space: No significant free fluid. Vasculature: Normal caliber of the abdominal aorta. Pelvic vascular calcifications. Lymph nodes: Subcentimeter lymph nodes. Bladder: Normal bladder morphology. Reproductive: Punctate prostate calcification. Bones/joints: Transitional vertebra at the lumbosacral junction. Schmorl's nodes and degenerative change. Bilateral cysts in the acetabular ribs. Soft tissues: Small fat containing umbilical and inguinal hernias. IMPRESSION: 1. No acute inflammatory process in the abdomen or pelvis. 2. Additional findings as described above. Dictated and Authenticated by: Darrell Urbina MD. Ordering:RYLAN Alvarez MD
--- NOTE | 2019-12-19 08:30 | DI.RAD_ITS ---
EXAM: XR CHEST 2V PA LATERAL CLINICAL HISTORY: r/o acute disease TECHNIQUE: 2D digital imaging was performed. COMPARISON: No exams were available for comparison FINDINGS: MEDIASTINUM: Normal. HEART: Normal. PULMONARY VASCULATURE: Normal. LUNGS: Clear. PLEURAL SPACE: No pleural effusion or pneumothorax. BONE:Normal. OTHER FINDINGS:Normal. IMPRESSION: No acute pulmonary findings. DATA REPOSITORY: RADIATION DOSE DELIVERED:
--- NOTE | 2019-12-19 08:30 | DI.US_ITS ---
EXAM: US ABDOMEN LIMITED CLINICAL HISTORY: r/o cholelithiasis and cholecystitis TECHNIQUE: Ultrasound performed using standard protocol. COMPARISON: CT CT ABDOMEN PELVIS W from 12/19/2019 FINDINGS: The gallbladder is somewhat distended. Patient was tender while scanning over the gallbladder. No gallbladder wall thickening or pericholecystic fluid is seen. There is a sludge ball near the fundus of the gallbladder. There is a stone in the neck of the gallbladder in 2 cm in. There is no biliar y dilatation. Visualized portions of the liver are unremarkable. IMPRESSION: 2 centimeter stone which appears impacted in the gallbladder neck. Sludge is also noted. There is a positive sonographic Langford's sign. DATA REPOSITORY:
[2019-12-19 09:17] LABS: Bilirubin Negative (Negative); Blood Negative (Negative); Clarity Sl Cloudy (Clear); Glucose Negative (Negative); Ketones Negative (Negative); Leukocyte Esterase Negative (Negative); Nitrite Negative (Negative); Specific Gravity 1.015 (1.005-1.025); Urobilinogen 0.2 EU/dL (Up TO 0.2)
[2019-12-19 09:24] VITALS: BP 127/81; PULSE 55; RESP 18; O2SAT 99
--- NOTE | 2019-12-19 18:47 | NUR.NOTE ---
referral faxed to general surgery.Nursing Note:
[2019-12-21 17:44] LABS: COVID-19 RT-PCR Result NEGATIVE (Negative)
--- NOTE | 2019-12-21 21:25 | NUR.NOTE ---
Called patient at [phone], Unable to leave voicemail regarding patients test results. Called patients sister to get a working number for patient and still unable to leave voicemail. Both phone state that they have not been set-up to receive voicemails. Nursing Note:
--- NOTE | 2019-12-22 09:47 | NUR.NOTE ---
Nursing Note: Attempted to call pt regarding negative COVID results- phone does not ring but goes directly to message stating phone is not set up to receive voicemails.
--- NOTE | 2019-12-23 08:17 | NUR.NOTE ---
Nursing Note: Attempted to contact patient regarding negative covid results, phone does not ring but goes directly to a message stating voicemail is not yet set up. Will mail negative test results to address on file.
== END 2019-12-19 11:44 | disposition home or self-care (01) ==
PROVIDERS: Emergency Medicine; Emergency Provider Physician Assistant
DX: K80.21 Calculus of gallbladder without cholecystitis with obstruction (principal); R11.2 Nausea with vomiting, unspecified; I10 Essential (primary) hypertension; Z11.59 Encounter for screening for other viral diseases; E11.9 Type 2 diabetes mellitus without complications
CPT/HCPCS: 36415; 80053; 83690; 96361; 96374; 96375; 99285; U0003; 71046; 74177; 76705; 81003; 82248; 85025; 85610; 85730; 99284; J2405; J3490

== ENCOUNTER → 2019-12-27 10:31 | Outpatient (BNVA) | payer MEDICARE, SELFPAY | PROVIDERS: Visit Provider Surgery | DX: K80.70 Calculus of gallbladder and bile duct without cholecystitis without obstruction (principal); E11.9 Type 2 diabetes mellitus without complications | CPT/HCPCS: 99213 ==

== ENCOUNTER 2020-07-23 12:42 | Emergency (ER) | payer MEDICARE, MEDICAID, SELFPAY ==
[2020-07-23 12:48] VITALS: BP 131/78; PULSE 85; RESP 16; TEMP 36.5; O2SAT 97
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
--- NOTE | 2020-07-23 13:44 | PDOC.MHCN_ITS ---
Date of service: 07/23/20 Time of Service: 13:44 Mental Health Crisis Note Presenting Issue How did you arrive at the ED and why did you come: Pt arrived to the ER today at the request of his psychiatric nurse practitioner for a MH assessment and possible referral. Precipitating Factors Pt denied SI and HI. He is not showing any signs of delusions although reports he has been having some although reports that they are mild to moderate. Disposition BEHAVIOR: Pt is cooperative and engaged. EYE CONTACT: Pt makes good eye contact. MOOD: Pt reported that he is depressed and is picking up a new prescription for an SSRI today prescribed by his psychiatric nurse practitioner. He also plans to start taking his hydroxyzine also prescribed by the same provider. AFFECT: Pt's affect appeared normal. APPETITE: Pt reported his appetite is cautious due to his diabetes and open wounds on his feet. SLEEP(trouble falling/staying asleep: Pt reported that his sleep has been poor. Plan Pt does not meet criteria for a psychiatric inpatient referral and is not voluntarily wanting one. He reported that he came to appease his provider. He has coping skills that he uses like walking, being outdoors, talking himself out of something, and finding anything to keep him busy. He reported he would outreach to his brother, girlfriend, therapist or psychiatric nurse practitioner. He is aware that he can outreach also to [facility]. Signature Clinician's Name/Title: Angela José MS, [facility] Emergency Services Clinician, [facility]
== END 2020-07-23 13:50 | disposition home or self-care (01) ==
PROVIDERS: Emergency Provider Physician Assistant
DX: F43.11 Post-traumatic stress disorder, acute (principal)
CPT/HCPCS: 99283

== ENCOUNTER 2020-07-24 15:52 | Emergency (ER) | payer MEDICARE, MEDICAID, SELFPAY ==
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
--- NOTE | 2020-07-24 16:12 | RESPIRATORY ---
Patient entered ED via [facility] while active cpr was being given. RT took over ventilation. Igel had been placed by [facility]. Patient ventilated by ambu bag at a rate of 12 breaths per minute and was stopped at 3:46pm
== END 2020-07-24 18:30 | disposition expired ==
PROVIDERS: Emergency Provider Emergency Medicine
CPT/HCPCS: 92950; 99285